=== PATIENT | female | born 1995 | race Caucasian/White ===

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

== ENCOUNTER 2017-10-26 20:51 | Emergency (ER) | payer OTHER ==
[~2017-10-26] VITALS: Ht 165.1 cm; Wt 102.2 kg
[~2017-10-26 20:51] MED LIST: CHOL100010; [UNRECOGNIZED DRUG - OTHER]
[2017-10-26 20:53] VITALS: TEMP 36.5; Ht 165.1 cm; Wt 102.2 kg
[2017-10-26] MEDS ORDERED: PROPARACAINE HCL 0.5% OP SOLN 15 ML BTL ONE (21:08)
[2017-10-26] MEDS ORDERED: ERYTHROMYCIN OP OINT 5 MG/GM 3.5 GM TUBE OP ONE (21:30)
[2017-10-26 21:41] VITALS: BP 104/65; PULSE 68; O2SAT 99
--- NOTE | 2017-10-26 22:15 | EMERGENCY ROOM VISIT NOTE ---
History Report prepared by Tiffanie: Yue Hargrove Under the Supervision of: Dr. Adan Mccall M.D. First contact with patient: 21:05 Chief Complaint: EYE ASSESSMENT Stated Complaint: GRAVEL IN EYE History of Present Illness The patient is a 22 year old female who presents to the Emergency Room with complaints of constant left eye pain starting around 1 hour ago. The patient was shoveling road salt and gravel when a piece got into her left eye. She tried flushing out her eye with water. She reports some burning pain to her eye and redness. She does wear glasses. She denies any change in vision. No headache. Her right eye is normal. Source of History: patient Onset: 1 hour ago Position: eye (left) Quality: burning Timing: constant Note: Pt reports eye redness. Review of Systems See HPI for pertinent positives & negatives. A total of 6 systems reviewed and were otherwise negative. Past Medical & Surgical Medical Problems: (1) AVN (avascular necrosis of bone) (2) Complex regional pain syndrome (3) Multiple exostosis, hereditary (4) POTS (postural orthostatic tachycardia syndrome) Surgical Problems: (1) Status post total hip replacement, left Family History Cancer Hypertension Social History Smoking Status: Never Smoker Alcohol Use: none Marital Status: single Occupation Status: [employer] student Current/Historical Medications Miscellaneous Medications Cholecalciferol (Vitamin D) [ketamine infusions] Allergies Coded Allergies: Pregabalin (Unverified Allergy, Severe, ., 07/26/16) Latex (Verified Allergy, Intermediate, rash hives, 07/26/16) Adhesives (Unverified Allergy, Unknown, SHORTNESS OF BREATH, 07/26/16) Physical Exam Vital Signs Date Time Temp Pulse Resp B/P (MAP) Pulse Ox O2 Delivery O2 Flow Rate FiO2 10/26/17 21:41 68 18 104/65 99 10/26/17 20:53 36.5 79 20 112/75 100 Room Air Right Eye Acuity: 20/25 Left Eye Acuity: 20/30 Physical Exam GENERAL: Awake, alert, well-appearing, in no distress HENT: Normocephalic, atraumatic. Oropharynx unremarkable. EYES: Sclera on the left was erythematous, right was normal. PERRLA. EOMI. See slit lamp for details. NEURO: Normal sensorium. No sensory or motor deficits noted. SKIN: No rash or jaundice noted. Medical Decision & Procedures Medications Administered Medications (Trade) Dose Ordered Sig/Prashant Route Start Time Stop Time Status Last Admin Dose Admin Proparacaine HCl (Alcaine 0.5% Oph Soln) 225 drops STK-MED ONCE .ROUTE 10/26/17 21:08 10/26/17 21:09 DC 10/26/17 21:09 225 DROPS Erythromycin (Erythromycin Oph Oint) 1 appln NOW ONCE OP 10/26/17 21:30 10/26/17 21:31 DC 10/26/17 21:31 1 APPLN Procedure Slit Lamp Examination Indication: eye pain, foreign body The left eye was prepped with topical proparacaine. Slit lamp examination was performed in the standard fashion. Cornea appeared without abrasions. Anterior chamber clear. Scleral injection was present. No discharge present. Fluorescein examination performed was negative. No foreign bodies noted. Negative Dony sign. The patient tolerated the procedure well without complication. ED Course 2106: The patient was evaluated in room C2B. A complete history and physical exam was performed. 2107: Proparacaine HCl OP. 2110: Slit lamp examination was performed as above. 2122: Discussed results and discharge instructions: They verbalized understanding and agreement. The patient is ready for discharge. 2129: Erythromycin OP. Medical Decision Prior records/ancillary studies reviewed. Triage Nursing notes reviewed and agree them. Additional history obtained from family. The patient's history was concerning for eye complaints. Differential diagnosis: Etiologies such as~a trauma, corneal abrasion, corneal ulcer, foreign body, globe penetration, hyphema, hypopyon, and orbital cellulitis, periorbital cellulitis, as well as others were entertained. Physical examination findings: As above.~ Slit-lamp examination revealed some conjunctival inflammation but no foreign body. No corneal abrasion. No signs of perforation. ER treatment provided: Proparacaine with complete resolution of irritation and symptoms. Erythromycin ophthalmic ointment Patient has some superficial inflammation after dealing with a foreign body in the eye. The mother states she flushed the pretty well but then lost site of the foreign body. Her lid was everted as well as her medial and lateral recesses explored. No obvious foreign body remains. By the evaluation outlined above emergent etiologies such as~trauma, corneal abrasion, corneal ulcer, foreign body, globe penetration, hyphema, hypopyon, and orbital cellulitis, periorbital cellulitis, as well as others were deemed relatively unlikely. The patient and mother were informed about the findings as listed above. All questions were answered and they were pleased with the treatment. Return instructions were outlined and the patient was discharged in stable condition. Outpatient prescription management: Erythromycin ophthalmic ointment Medication Reconcilliation Current Medication List: was personally reviewed by me Blood Pressure Screening Patient's blood pressure: Normal blood pressure Blood pressure disposition: Did not require urgent referral Impression Primary Impression: Conjunctivitis Additional Impression: Sensation of foreign body Scribe Attestation The scribe's documentation has been prepared under my direction and personally reviewed by me in its entirety. I confirm that the note above accurately reflects all work, treatment, procedures, and medical decision making performed by me. Departure Information Dispostion Home / Self-Care Referrals Dariel Frias M.D. (PCP) Forms HOME CARE DOCUMENTATION FORM, IMPORTANT VISIT INFORMATION, WORK / SCHOOL INSTRUCTIONS Patient Instructions My [facility] Additional Instructions Erythromycin ophthalmic ointment. Apply 1/4 inch ribbon of ointment to the affected eye 3-4 times daily for the next 3-5 days or as needed for irritation. Return to the emergency department for worsening vision, severe eye pain, facial swelling, fever, or as needed. Cool compresses 2-3 times a day as needed. Your eye may be sensitive to light over the next few days. Wear sunglasses as needed. Problem Qualifiers
== END 2017-10-26 21:30 | disposition home or self-care (01) ==
LOC: C.EDB 20:52 → C.EDC 21:30
DX: H10.9 Unspecified conjunctivitis (principal); H57.9 Unspecified disorder of eye and adnexa; Z91.040 Latex allergy status; Z91.048 Other nonmedicinal substance allergy status